=== PATIENT | female | born 1970 | race Caucasian/White ===

== ENCOUNTER 2020-11-19 21:05 | Emergency (ER) | payer OTHER ==
[~2020-11-19 21:05] MED LIST: BACTRIM DS TAB1 EACH PO; BENTYL 10MG CAP10 MG PO; BENTYL 20MG TAB20 MG PO; CEFUROXIME500 MG PO; CYCLOBENZAPRINE5 MG PO; IBU800 MG PO; IBUPROFEN600 MG PO; IBUPROFEN800 MG PO; KEFLEX CAP 500500 MG PO; LODINE CAP 300300 MG PO; NORCO 5-325 TA1 EACH PO; PRILOSEC OTC20 MG PO; PYRIDIUM200 MG PO; ZOFRAN ODT 4 MG4 MG SL
[2020-11-19 22:56] LABS: HEMOGLOBIN 12.9 gm/dl (12.3-15.3); RED BLOOD COUNT 4.11 M/UL (4.00-5.10); WHITE BLOOD COUNT 5.1 K/UL (4.5-11.0)
[2020-11-20 00:34] LABS: BUN/CREATININE RATIO 17 (0-10)
[2020-11-20] MEDS ORDERED: OMNICEF 300 MG300 MG PO (00:41)
== END 2020-11-20 01:10 | disposition home or self-care (01) ==
LOC: ER1 21:05
PROVIDERS: Physician Assistant
DX: R55 Syncope and collapse (principal); R53.1 Weakness; Z20.822 Contact with and (suspected) exposure to COVID-19; G40.909 Epilepsy, unspecified, not intractable, without status epilepticus; Z86.73 Personal history of transient ischemic attack (TIA), and cerebral infarction without residual deficits; Z87.891 Personal history of nicotine dependence; Z88.8 Allergy status to other drugs, medicaments and biological substances; Z79.899 Other long term (current) drug therapy
CPT/HCPCS: 70450; 71045; 80053; 81001; 82550; 82553; 83874; 83880; 84439; 84443; 84484; 85025; 87077; 87086; 87186; 93005; 96374; 99285; J0696; U0002

== ENCOUNTER 2021-04-21 22:55 | Emergency (ER) | payer OTHER ==
[~2021-04-21 22:55] MED LIST changes: +OMNICEF 300 MG300 MG PO
[2021-04-21] MEDS ORDERED: SULFAMETHOXAZO473 ML PO (23:26)
== END 2021-04-22 01:04 | disposition home or self-care (01) ==
LOC: ER1 22:55
DX: S02.2XXA Fracture of nasal bones, initial encounter for closed fracture (principal); Z88.8 Allergy status to other drugs, medicaments and biological substances; Y04.2XXA Assault by strike against or bumped into by another person, initial encounter
CPT/HCPCS: 70150; 99283